=== PATIENT | male | born 2000 | race African-American/Black ===

== ENCOUNTER 2021-06-23 08:07 | Emergency (ER) | payer MEDICAID ==
[~2021-06-23] VITALS: Ht 175.3 cm; Wt 62.6 kg
[2021-06-23 08:20] VITALS: BP_SYST 143
--- NOTE | 2021-06-23 08:25 | NUR ---
Pt came into ER with complaint of perianal pain X14 days 08/17. Pt reports it hurts to sit down. Pt AAOX4 speaking full sentences. Resting in gurney VSS no distress noted.
--- NOTE | 2021-06-23 08:25 | NUR ---
Patient to ER bed 3 to gown for evaluation. Side rails up.
--- NOTE | 2021-06-23 08:26 | NUR ---
ER at bedside examining patient.
[2021-06-23] MEDS ORDERED: TRAM50TA2 PO (08:41)
[2021-06-23] MEDS ORDERED: AMOX-426 PO (08:41)
--- NOTE | 2021-06-23 08:44 | NUR ---
Dr. Jefferson performed incision and drainage on perirectal abcess. Pt tolerated well. Incision packed and dressed.
[2021-06-23] MEDS: LIDOCAINE 1% 10 MG/ML, 20 ML MDV INJ ONE (08:58)
[2021-06-23 08:59] VITALS: BP_SYST 143
--- NOTE | 2021-06-23 08:59 | NUR ---
Patient given written and verbal discharge instructions and verbalizes understanding. ER MD discussed with patient the results and treatment provided. Patient in stable condition. ID arm band remove Rx of augmentin and tramdol given. Patient educated on pain management and to follow up with PMD. Pain Scale 0/10. Opportunity for questions provided and answered. Medication side effect fact sheet provided.
== END 2021-06-23 08:59 | disposition home or self-care (01) ==
LOC: SED 08:07
DX: L05.01 Pilonidal cyst with abscess (principal); Z79.899 Other long term (current) drug therapy
CPT/HCPCS: 10080; 99283; J2001

== ENCOUNTER 2021-06-25 08:45 | Emergency (ER) | payer MEDICAID ==
[~2021-06-25] VITALS: Ht 175.3 cm; Wt 61.2 kg
[~2021-06-25 08:45] MED LIST: AMOX-426 PO; TRAM50TA2 PO
[2021-06-25 08:53] VITALS: BP_SYST 144
--- NOTE | 2021-06-25 08:56 | NUR ---
Patient to ER bed 03 to gown for evaluation. Side rails up.
--- NOTE | 2021-06-25 09:05 | NUR ---
ER at bedside examining patient.
[2021-06-25] MEDS ORDERED: BACITRACIN 1 GM OINT TP ONE (09:06)
[2021-06-25] MEDS: BACITRACIN 1 GM OINT TP ONE (09:06)
--- NOTE | 2021-06-25 09:06 | NUR ---
Pt presents to ED for wound check of left buttock. No drainage, redness or swelling noted. No pain present. Pt states the wound was packed but the packing fell out while showering. All other VSS.
--- NOTE | 2021-06-25 09:09 | NUR ---
Ointment and dressing applied. Pt tolerated well.
[2021-06-25 09:29] VITALS: BP_SYST 144
--- NOTE | 2021-06-25 09:29 | NUR ---
Patient given written and verbal discharge instructions and verbalizes understanding. ER MD discussed with patient the results and treatment provided. Patient in stable condition. ID arm band removed. IV catheter removed intact and dressing applied, no active bleeding. Patient educated on pain management and to follow up with PMD. Pain Scale 0. Opportunity for questions provided and answered. Medication side effect fact sheet provided.
== END 2021-06-25 09:29 | disposition home or self-care (01) ==
LOC: SED 08:45
DX: Z48.00 Encounter for change or removal of nonsurgical wound dressing (principal); Z79.899 Other long term (current) drug therapy
CPT/HCPCS: 99282

== ENCOUNTER 2021-12-14 09:40 | Emergency (ER) | payer MEDICAID, SELFPAY ==
[~2021-12-14] VITALS: Ht 175.3 cm; Wt 62.1 kg
[2021-12-14 10:30] VITALS: BP_SYST 138
[2021-12-14] MEDS ORDERED: FLUORESCEIN SODIUM 1 MG OPHTHALMIC STRIP OP ONE (10:30)
[2021-12-14] MEDS ORDERED: PROPARACAINE (OPTHANINE 0.5%) 15 ML DROPS OP ONE (10:30)
--- NOTE | 2021-12-14 10:34 | NUR ---
pt. came in with concerns of eyes feeling heavy and burning since yesterday, states used new contact solution and instantly had burning
--- NOTE | 2021-12-14 10:34 | NUR ---
ER in triage examining patient.
--- NOTE | 2021-12-14 10:36 | NUR ---
Patient to ER hallway bed for evaluation. Side rails up. assumed care.
--- NOTE | 2021-12-14 10:45 | NUR ---
Dr. Stanley did eye exam and discussed POC with pt.
[2021-12-14 10:58] VITALS: BP_SYST 110
--- NOTE | 2021-12-14 10:59 | NUR ---
Patient given written and verbal discharge instructions and verbalizes understanding. ER MD discussed with patient the results and treatment provided. Patient in stable condition. ID arm band removed. Patient educated on pain management and to follow up with PMD. Pain Scale [0/10]. Opportunity for questions provided and answered. Medication side effect fact sheet provided.
== END 2021-12-14 10:59 | disposition home or self-care (01) ==
LOC: SED 09:40
DX: H57.89 Other specified disorders of eye and adnexa (principal); Z79.899 Other long term (current) drug therapy
CPT/HCPCS: 99283

== ENCOUNTER 2022-06-06 08:16 | Emergency (ER) | payer MEDICAID ==
[~2022-06-06] VITALS: Ht 175.3 cm; Wt 63.5 kg
[~2022-06-06 08:16] MED LIST changes: +ACYC400T19 PO
[2022-06-06 08:32] VITALS: BP_SYST 137
--- NOTE | 2022-06-06 08:45 | NUR ---
PT PLACED IN BED 5
--- NOTE | 2022-06-06 08:55 | NUR ---
PT BEING ASSESSED BY DR. BROWN
[2022-06-06] MEDS ORDERED: HYDC2.5% TP (09:02)
[2022-06-06] MEDS ORDERED: LIDO113G2 TP (09:02)
--- NOTE | 2022-06-06 09:09 | NUR ---
PT SEEN BY DR. BROWN WITH RX TO BE SENT FOR PAIN RELIEF. NAD NOTED, PT REPORTS PAIN 9/10 WORSENED WHEN ATTEMPTING BOWEL MOVEMENT. ANAL FISSURE PREVIOUSLY DIAGNOSED. PT SEEN BY PMD WITH F/U WITH SURGEON STATED. PT REPORTS WORSENING PAIN WITH BM AND UNABLE TO SIT DOWN COMFORTABLY. ANUS ASSESSED WITH UNOPENED ANAL FISSURE NOTED. NO BLEEDING NOTED. NO OPEN WOUNDS. PT REQUESTING MEDICATIONS LEARNED BY WATCHING [employer]. VSS, AFEBRILE. PT TO F/U WITH PMD AND SURGEON AND TAKE MEDS FOR COMFORT WITH BM. DR. BROWN STRESSED TO PT TO ONLY USE PRIOR TO BM TO AVOID TOXICITY. PT VERBALIZED UNDERSTANDING.
[2022-06-06 09:19] VITALS: BP_SYST 131
--- NOTE | 2022-06-06 09:23 | NUR ---
PT CLEARED FOR DC. VSS, AFEBRILE. NAD NOTED. CONT TO REPORT PAIN FROM ANUS WITHOUT ANY DISTRESS NOTED. DR. KAPADIA SENT RX TO PT'S PHARM. PT VERBALIZED UNDERSTANDING OF DC INSTRUCTIONS AND HOW TO TAKE HIS PRESCRIBED MEDS. ENCOURAGED PO INTAKE OF FLUIDS ALONG WITH INCREASED FIBER IN DIET. CONDITION STABLE AT DC. PT AMBULATED OUT OF ED INDEPENDENTLY.
== END 2022-06-06 09:23 | disposition home or self-care (01) ==
LOC: SED 08:16
DX: K60.2 Anal fissure, unspecified (principal); Z79.899 Other long term (current) drug therapy
CPT/HCPCS: 99283

== ENCOUNTER 2022-12-12 10:22 | Emergency (ER) | payer BC, MEDICAID ==
[~2022-12-12] VITALS: Ht 175.3 cm; Wt 63.5 kg
[~2022-12-12 10:22] MED LIST changes: +HYDC2.5% TP; +LIDO113G2 TP
[2022-12-12 10:44] VITALS: BP_SYST 122
[2022-12-12 11:05] LABS: BASOPHILS % (AUTO) 0.2 % (0.0-2.0); EOSINOPHILS # (AUTO) 0.1 K/uL (0.0-0.4); EOSINOPHILS % (AUTO) 1.6 % (0.0-4.0); HEMATOCRIT 45.2 % (36-54); HEMOGLOBIN 15.1 g/dL (14.0-18.0); LYMPHOCYTES # (AUTO) 1.5 K/uL (1.0-5.5); LYMPHOCYTES % (AUTO) 38.9 % (20.5-51.5); MEAN CORPUSCULAR HEMOGLOBIN 30 pg (27-31); MEAN CORPUSCULAR HGB CONC 33 % (32-36); MEAN CORPUSCULAR VOLUME 89 fL (79.0-98.0); MONOCYTES # (AUTO) 0.5 K/uL (0.0-1.0); MONOCYTES % (AUTO) 11.7 % (1.7-9.3); NEUTROPHILS # (AUTO) 1.8 K/uL (1.8-7.7); NEUTROPHILS % (AUTO) 47.6 % (40.0-70.0); PLATELET COUNT (AUTO) 164 K/uL (130-430); RED BLOOD CELL COUNT(AUTO) 5.08 MIL/uL (4.2-6.2); RED CELL DISTRIBUTION WIDTH 13.4 % (9.0-15.0); WHITE BLOOD COUNT (AUTO) 3.9 K/uL (4.8-10.8)
[2022-12-12 12:36] LABS: CALCIUM 8.6 mg/dL (8.4-11.0); CREATININE 0.8 mg/dL (0.55-1.30)
[2022-12-12 12:40] LABS: ALBUMIN 3.8 g/dL (3.4-4.8); TOTAL BILIRUBIN 0.5 mg/dL (0.0-1.0)
[2022-12-12] MEDS ORDERED: LIDOCAINE 1% 10 MG/ML, 20 ML MDV INJ ONE (13:15)
[2022-12-12] MEDS ORDERED: CLIN-142 PO (13:18)
[2022-12-12] MEDS ORDERED: IBUP-1971 PO (13:18)
[2022-12-12] MEDS ORDERED: CLINDAMYCIN 600 mg/50mL D5W 50 ML IV ONE (13:30)
[2022-12-12] MEDS ORDERED: HYDR-3917 PO (13:36)
== END 2022-12-12 14:49 | disposition home or self-care (01) ==
LOC: SED 10:22
DX: K61.1 Rectal abscess (principal); K62.89 Other specified diseases of anus and rectum; Z79.899 Other long term (current) drug therapy
CPT/HCPCS: 46050; 99285; 74177; 96365; 80053; 85025; 36415; 76376; J3490; J2001; Q9967

== ENCOUNTER 2023-04-14 18:37 | Emergency (ER) | payer BC ==
[~2023-04-14] VITALS: Ht 172.7 cm; Wt 63.5 kg
[~2023-04-14 18:37] MED LIST changes: +CLIN-142 PO; +HYDR-3917 PO; +IBUP-1971 PO
[2023-04-14 19:27] VITALS: BP_SYST 133
--- NOTE | 2023-04-14 19:27 | NUR ---
Patient triaged and placed in waiting room. VSS and patient appears in no acute distress at this time. Accompanied by SELF, awaiting available bed, and MD notified of need for MSE.
--- NOTE | 2023-04-14 21:25 | NUR ---
Patient to ER bed 03 to gown for evaluation. Side rails up. Report given to ANTHONY JOHNSON.
--- NOTE | 2023-04-14 22:00 | NUR ---
No change from previous assessment. Will continue with POC; and, continue to monitor VS & clinical status.
[2023-04-14 23:15] VITALS: BP_SYST 133
--- NOTE | 2023-04-14 23:15 | NUR ---
Dr. Calderón at bedside discussing lab & Tx plan. MD discharge patient home. Patient ambulated OTD in stable condition.
== END 2023-04-14 23:15 | disposition home or self-care (01) ==
LOC: SED 18:37
DX: Z20.2 Contact with and (suspected) exposure to infections with a predominantly sexual mode of transmission (principal); Z79.899 Other long term (current) drug therapy
CPT/HCPCS: 99281

== ENCOUNTER 2024-01-11 17:51 | Emergency (ER) | payer BC ==
[~2024-01-11] VITALS: Ht 175.3 cm; Wt 65.8 kg
[2024-01-11 18:23] VITALS: BP_SYST 126; PULSE 109; RESP 19; TEMP 98.5; O2SAT 97
[2024-01-11] MEDS: IBUPROFEN 800 MG TABLET PO ONE (20:02)
[2024-01-11] MEDS: ACETAMINOPHEN 500 MG TABLET PO ONE (20:03)
[2024-01-11] MEDS: SULFAMETHOXAZOLE/TRIMETHOPR DS 1 TABLET PO ONE (21:29)
[2024-01-11] MEDS ORDERED: LIDOCAINE 1% 10 MG/ML, 20 ML MDV INJ ONE (21:30)
[2024-01-11] MEDS: MORPHINE 4 MG INJ. 4 MG/ML VIAL IM ONE (21:30)
[2024-01-11] MEDS ORDERED: IBUP-1969 PO (22:26)
[2024-01-11] MEDS ORDERED: SULF1TAB48 PO (22:26)
[2024-01-11] MEDS ORDERED: HYDR-3917 PO (22:28)
[2024-01-11 22:44] VITALS: BP_SYST 126; PULSE 109; RESP 19; TEMP 98.5; O2SAT 97
== END 2024-01-11 22:40 | disposition home or self-care (01) ==
LOC: SED 17:51
DX: L02.31 Cutaneous abscess of buttock (principal); Z79.899 Other long term (current) drug therapy
CPT/HCPCS: 99284; 10060; 96372; J2270; J2001

== ENCOUNTER 2024-01-13 05:40 | Emergency (ER) | payer BC ==
[~2024-01-13] VITALS: Ht 175.3 cm; Wt 65.8 kg
[~2024-01-13 05:40] MED LIST changes: +IBUP-1969 PO; +SULF1TAB48 PO
[2024-01-13 05:46] VITALS: BP_SYST 142; PULSE 95; RESP 18; TEMP 100; O2SAT 97
[2024-01-13 06:10] VITALS: BP_SYST 142; PULSE 80; RESP 18; TEMP 99.3; O2SAT 97
== END 2024-01-13 06:08 | disposition home or self-care (01) ==
LOC: SED 05:40
DX: L02.31 Cutaneous abscess of buttock (principal); Z79.899 Other long term (current) drug therapy
CPT/HCPCS: 99281